=== PATIENT | male | born 1965 | race Caucasian/White ===

== ENCOUNTER 2017-10-14 19:20 | Inpatient (IN) | payer OTHER ==
[~2017-10-14] VITALS: Ht 182.9 cm; Wt 106.8 kg
--- NOTE | 2017-10-14 20:05 | EKG ---
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
[2017-10-14 20:07] LABS: BASO # 0.1 x10^3/uL (0.0-0.2); BASO % 1 % (0-3); EOS # 0.2 x10^3/uL (0.0-0.7); EOS % 2 % (0-3); HEMOGLOBIN 13.7 g/dL (13.0-17.5); LYMPH # 2.3 x10^3/uL (1.0-4.8); LYMPH % 21 % (24-48); MEAN CORPUSCULAR HEMOGLOBIN 30 pg (25-35); MEAN CORPUSCULAR HGB CONC 35 g/dL (31-37); MEAN CORPUSCULAR VOLUME 84 fL (79-100); MONO # 0.8 x10^3/uL (0.0-1.1); MONO % 8 % (0-9); NEUT # 7.3 x10^3uL (1.8-7.7); NEUT % 69 % (31-73); PLATELET COUNT 245 x10^3/uL (140-400); RED BLOOD COUNT 4.67 x10^6/uL (4.30-5.70); RED CELL DISTRIBUTION WIDTH 14.6 % (11.5-14.5); WHITE BLOOD COUNT 10.7 x10^3/uL (4.0-11.0)
[2017-10-14 20:21] LABS: ALBUMIN 4.5 g/dL (3.4-5.0); ALBUMIN/GLOBULIN RATIO 1.4 (1.0-1.7); CALCIUM 9.4 mg/dL (8.5-10.1); CREATININE 1.5 mg/dL (0.7-1.3); GFR 49.1; POTASSIUM 3.9 mmol/L (3.5-5.1); TOTAL BILIRUBIN 0.4 mg/dL (0.2-1.0); TOTAL PROTEIN 7.8 g/dL (6.4-8.2)
[2017-10-14] MEDS ORDERED: NITROGLYCERIN OINT 1 GM PACKET. TP ONE (20:30)
--- NOTE | 2017-10-14 20:39 | RAD ---
EXAM: Chest, single view. HISTORY: Chest pain. COMPARISON: None. FINDINGS: A frontal view of the chest is obtained. There is no infiltrate, effusion or pneumothorax. The heart is normal in size. There may be a chronic inferior right rib fracture. IMPRESSION: No acute pulmonary finding. Electronically signed by: Aundrea Melchor MD (10/14/2017 8:36 PM) [facility]
[2017-10-14] MEDS ORDERED: MORPHINE SULFATE 4 MG/ML DISP.SYRIN. IV PRN (21:00)
[2017-10-14] MEDS ORDERED: NITROGLYCERIN SUBLINGUAL 0.4 MG BOTTLE OF 25. SL PRN (21:00)
--- NOTE | 2017-10-14 21:05 | PHYS DOC ---
Past History Past Medical History: Alcoholism, Diabetes, High Cholesterol, Hypertension Past Surgical History: Cholecystectomy, Other Alcohol Use: Sober Drug Use: None Adult General Chief Complaint Chief Complaint: CHEST PAIN HPI HPI 51-year-old male with no history of known coronary artery disease, risk factors hypertension high cholesterol and type 2 diabetes as well as a family history of coronary artery disease. Patient describes his mother in her 60s of a heart attack. Patient came to the emergency department because he was experiencing a dull chest ache mid chest. No shortness of breath nausea vomiting or diaphoresis. Patient denies active cough or fever. He has no pleuritic pain. Pain is not reproducible with movement. He states he did have a cardiac workup previously with a stress test and he thinks a catheterization several years ago and the results were unremarkable and required no intervention. Patient was given 324 mG of aspirin by EMS Review of Systems Review of Systems Constitutional: Denies fever or chills [] Eyes: Denies change in visual acuity, redness, or eye pain [] HENT: Denies nasal congestion or sore throat [] Respiratory: Denies cough or shortness of breath [] Cardiovascular: No additional information not addressed in HPI [] GI: Denies abdominal pain, nausea, vomiting, bloody stools or diarrhea [] : Denies dysuria or hematuria [] Musculoskeletal: Denies back pain or joint pain [] Integument: Denies rash or skin lesions [] Neurologic: Denies headache, focal weakness or sensory changes [] Endocrine: Denies polyuria or polydipsia [] All other systems were reviewed and found to be within normal limits, except as documented in this note. Current Medications Current Medications Current Medications Medications (Trade) Dose Ordered Sig/Bessie Start Time Stop Time Status Last Admin Dose Admin Morphine Sulfate (Morphine 4mg Syringe) 2 mg PRN Q2HR PRN 10/14/17 21:00 Nitroglycerin (Nitro-Bid Oint) 1 inch 1X ONCE 10/14/17 20:30 10/14/17 20:31 DC 10/14/17 20:35 1 INCH Nitroglycerin (Nitrostat) 0.4 mg PRN Q5MIN PRN 10/14/17 21:00 10/15/17 20:59 UNV Sodium Chloride 1,000 ml @ 125 mls/hr Q8H 10/14/17 21:00 10/15/17 20:59 Allergies Allergies Allergies Coded Allergies Type Severity Reaction Last Updated Verified No Known Drug Allergies 10/14/17 No Physical Exam Physical Exam Constitutional: Well developed, well nourished, no acute distress, non-toxic appearance. [] HENT: Normocephalic, atraumatic, bilateral external ears normal, oropharynx moist, no oral exudates, nose normal. [] Eyes: PERRLA, EOMI, conjunctiva normal, no discharge. [] Neck: Normal range of motion, no tenderness, supple, no stridor. [] Cardiovascular:Heart rate regular rhythm, no murmur [] Lungs & Thorax: Bilateral breath sounds clear to auscultation [] Abdomen: Bowel sounds normal, soft, no tenderness, no masses, no pulsatile masses. [] Skin: Warm, dry, no erythema, no rash. [] Back: No tenderness, no CVA tenderness. [] Extremities: No tenderness, no cyanosis, no clubbing, ROM intact, no edema. [] Neurologic: Alert and oriented X 3, normal motor function, normal sensory function, no focal deficits noted. [] Psychologic: Affect normal, judgement normal, mood normal. [] Current Patient Data Vital Signs Vital Signs Date Time Temp Pulse Resp B/P (MAP) Pulse Ox O2 Delivery O2 Flow Rate FiO2 10/14/17 20:35 61 165/92 10/14/17 19:20 98.3 18 98 Room Air Lab Results Laboratory Tests Test 10/14/17 19:30 White Blood Count 10.7 x10^3/uL (4.0-11.0) Red Blood Count 4.67 x10^6/uL (4.30-5.70) Hemoglobin 13.7 g/dL (13.0-17.5) Hematocrit 39.0 % (39.0-53.0) Mean Corpuscular Volume 84 fL (79-100) Mean Corpuscular Hemoglobin 30 pg (25-35) Mean Corpuscular Hemoglobin Concent 35 g/dL (31-37) Red Cell Distribution Width 14.6 % (11.5-14.5) H Platelet Count 245 x10^3/uL (140-400) Neutrophils (%) (Auto) 69 % (31-73) Lymphocytes (%) (Auto) 21 % (24-48) L Monocytes (%) (Auto) 8 % (0-9) Eosinophils (%) (Auto) 2 % (0-3) Basophils (%) (Auto) 1 % (0-3) Neutrophils # (Auto) 7.3 x10^3uL (1.8-7.7) Lymphocytes # (Auto) 2.3 x10^3/uL (1.0-4.8) Monocytes # (Auto) 0.8 x10^3/uL (0.0-1.1) Eosinophils # (Auto) 0.2 x10^3/uL (0.0-0.7) Basophils # (Auto) 0.1 x10^3/uL (0.0-0.2) Sodium Level 131 mmol/L (136-145) L Potassium Level 3.9 mmol/L (3.5-5.1) Chloride Level 96 mmol/L (98-107) L Carbon Dioxide Level 23 mmol/L (21-32) Anion Gap 12 (6-14) Blood Urea Nitrogen 17 mg/dL (8-26) Creatinine 1.5 mg/dL (0.7-1.3) H Estimated GFR (Cockcroft-Gault) 49.1 BUN/Creatinine Ratio 11 (6-20) Glucose Level 139 mg/dL (70-99) H Calcium Level 9.4 mg/dL (8.5-10.1) Total Bilirubin 0.4 mg/dL (0.2-1.0) Aspartate Amino Transferase (AST) 21 U/L (15-37) Alanine Aminotransferase (ALT) 34 U/L (16-63) Alkaline Phosphatase 73 U/L (46-116) Troponin I Quantitative < 0.017 ng/mL (0-0.055) Total Protein 7.8 g/dL (6.4-8.2) Albumin 4.5 g/dL (3.4-5.0) Albumin/Globulin Ratio 1.4 (1.0-1.7) EKG EKG EKG with normal sinus rhythm at 61 bpm, left axis deviation, no STEMI interpreted by me Radiology/Procedures Radiology/Procedures Chest x-ray chronic changes no acute disease interpreted by me[] Course & Med Decision Making Course & Med Decision Making Pertinent Labs and Imaging studies reviewed. (See chart for details) Signs and symptoms consistent with chest pain a possible cardiac etiology in this 51-year-old male with multiple cardiac risk factors and a family history of coronary artery disease. EKG unremarkable. Troponin negative. Chest x-ray benign. He's clinically stable and pain-free on M.D. exam. Nitroglycerin paste applied. Case discussed with Dr. Hoffman hospitalist on-call is aware the history and findings and accept the patient for inpatient admission to his service for full cardiac workup. Dragon Disclaimer Dragon Disclaimer This electronic medical record was generated, in whole or in part, using a voice recognition dictation system. Departure Departure: Impression: Primary Impression: Chest pain Disposition: ADMITTED INPATIENT Admitting Physician: Andrew Hoffman Condition: GOOD LAURIE GROSS MD October 14, 2017 21:05
[2017-10-14 23:59] VITALS: BP 129/81
[2017-10-15] MEDS: IV NORMAL SALINE 1,000ML 1,000 ML IV SCH ×3 (00:10→08:52)
[2017-10-15] MEDS ORDERED: LISI-338 PO (03:05)
[2017-10-15] MEDS ORDERED: CYAN100031 PO (03:05)
[2017-10-15] MEDS ORDERED: ASPI-612 PO (03:05)
[2017-10-15] MEDS ORDERED: MIRT15TA3 PO (03:05)
[2017-10-15] MEDS ORDERED: INSU100I13 SQ (03:05)
[2017-10-15] MEDS ORDERED: OLAN10TA9 PO (03:05)
[2017-10-15] MEDS ORDERED: HYDR25TA PO (03:05)
[2017-10-15] MEDS ORDERED: CRESTOR20 MG PO (03:05)
[2017-10-15] MEDS ORDERED: LURA40TA PO (03:05)
[2017-10-15] MEDS ORDERED: NALT50TA PO (03:05)
[2017-10-15] MEDS ORDERED: TOPI50TA8 PO (03:05)
[2017-10-15] MEDS ORDERED: OXCA300T PO (03:05)
[2017-10-15] MEDS ORDERED: LORA10TA3 PO (03:05)
[2017-10-15] MEDS ORDERED: MAGN400T3 PO (03:05)
[2017-10-15] MEDS ORDERED: PROP20TA PO (03:05)
[2017-10-15] MEDS ORDERED: PANT40TA5 PO (03:05)
[2017-10-15] MEDS ORDERED: CALC1TAB PO (03:05)
[2017-10-15] MEDS ORDERED: AMLO10TA2 PO (03:05)
[2017-10-15] MEDS ORDERED: LEVO150T5 PO (03:05)
[2017-10-15] MEDS ORDERED: METF10003 PO (03:05)
[2017-10-15] MEDS ORDERED: NICO1PAT21 TD (03:05)
[2017-10-15] MEDS ORDERED: FENO145T30 PO (03:05)
[2017-10-15] MEDS ORDERED: hydrOXYzine HCL 25 MG TABLET PO PRN (06:15)
[2017-10-15 06:30] VITALS: BP 112/72
[2017-10-15 06:41] LABS: BASO # 0.1 x10^3/uL (0.0-0.2); BASO % 1 % (0-3); EOS # 0.2 x10^3/uL (0.0-0.7); EOS % 2 % (0-3); HEMATOCRIT 36.2 % (39.0-53.0); HEMOGLOBIN 12.7 g/dL (13.0-17.5); LYMPH # 1.4 x10^3/uL (1.0-4.8); LYMPH % 20 % (24-48); MEAN CORPUSCULAR HEMOGLOBIN 29 pg (25-35); MEAN CORPUSCULAR HGB CONC 35 g/dL (31-37); MEAN CORPUSCULAR VOLUME 84 fL (79-100); MONO # 0.7 x10^3/uL (0.0-1.1); MONO % 9 % (0-9); NEUT % 68 % (31-73); PLATELET COUNT 200 x10^3/uL (140-400); RED BLOOD COUNT 4.32 x10^6/uL (4.30-5.70); RED CELL DISTRIBUTION WIDTH 15.1 % (11.5-14.5); WHITE BLOOD COUNT 7.3 x10^3/uL (4.0-11.0)
[2017-10-15 07:04] LABS: CALCIUM 8.7 mg/dL (8.5-10.1); CREATININE 1.4 mg/dL (0.7-1.3); GFR 53.2
[2017-10-15] MEDS: ASPIRIN ENTERIC COATED 81 MG TABLET.DR. PO SCH (08:54)
[2017-10-15] MEDS: LEVOTHYROXINE 150 MCG TABLET PO SCH (08:54)
[2017-10-15] MEDS: PANTOPRAZOLE 40 MG TABLET. PO SCH (08:54)
[2017-10-15] MEDS: metFORMIN 500 MG TABLET PO SCH ×2 (08:54→17:51)
[2017-10-15] MEDS: CALCIUM CARB/VIT D3 500/200 TABLET PO SCH ×2 (08:55→17:51)
[2017-10-15] MEDS: PROPRANOLOL 20 MG TABLET. PO SCH ×3 (08:56→20:41)
[2017-10-15] MEDS: NALTREXONE HCL 50 MG TABLET PO SCH (08:56)
[2017-10-15] MEDS: MAGNESIUM OXIDE 400 MG TABLET PO SCH (08:57)
[2017-10-15] MEDS: LURASIDONE 40 MG TABLET. PO SCH (08:57)
[2017-10-15] MEDS: amLODIPine BESYLATE 10 MG TABLET PO SCH (08:58)
[2017-10-15] MEDS: FENOFIBRATE NANOCRYSTALLIZED 145 MG TABLET PO SCH (08:58)
[2017-10-15] MEDS: LISINOPRIL 5 MG TABLET. PO SCH (08:58)
[2017-10-15] MEDS: TOPIRAMATE 25 MG TABLET. PO SCH ×2 (08:58→20:41)
[2017-10-15] MEDS: CYANOCOBALAMIN (VITAMIN B-12) 1,000 MCG TABLET. PO SCH (08:59)
[2017-10-15] MEDS: NICOTINE 21MG PATCH. TD SCH (09:00)
--- NOTE | 2017-10-15 09:18 | PDOC2 ---
CONSULT Date of Admission DATE: 10/15/17 TIME: 09:05 Reason for Consult: chest pain Problem List Problems Medical Problems: (1) Chest pain Status: Acute History of Present Illness Mr Haji is a 51 year old male with history of hypertension, hyperlipidemia, and diabetes. He presents with complaints of chest pain which started while sitting watching TV. He describes a sharp stabbing midsternal pain that radiated around his arm pit to his back. He reports some associated dyspnea and weakness. He reports the pain lasted about 20 minutes and rated it an 8-9 on 1-10 scale. He denies any increase with deep inspiration, position, movement or exertion. He states on arrival to ED he again began to have pain which was unrelieved with nitrates and resolved with morphine. He has been pain free since that time. He denies any dyspnea on exertion and states his functional capacity at 2 miles walking. He denies congestive symptoms. He denies palpitations, lightheadedness or syncope. He denies any recent progressive fatigue. Cardiovascular: HTN, hyperipidemia Pulmonary: No pertinent hx GI: GERD Heme/Onc: No pertinent hx Hepatobiliary: No pertinent hx Psych: Bipolar, Depression Musculoskeletal: No pertinent hx Rheumatologic: No pertinent hx Infectious disease: No pertinent hx ENT: No pertinent hx Renal/: Chronic renal insuff Endocrine: Diabetes, Hyperthyroidism Dermatology: No pertinent hx Past Surgical History: Cholecystectomy, Other (umbilical hernia repair, inguinal hernia repair) Family History Mother age 60 with [place] Social History Chews tobacco, alcoholism with last drink September 04, remote history of methamphetamine and cocaine use. currently lives in domiciliary at the [facility]. Current Medications Current Medications Nitroglycerin (Nitro-Bid Oint) 1 inch 1X ONCE TP Last administered on at 20:35; Start 10/14/17 at 20:30; Stop 10/14/17 at 20:31; Status DC Morphine Sulfate (Morphine 4mg Syringe) 2 mg PRN Q2HR PRN IV PAIN Last administered on 10/15/17at 00:11; Start 10/14/17 at 21:00 Sodium Chloride 1,000 ml @ 125 mls/hr Q8H IV Last administered on 10/15/17at 08 :52; Start 10/14/17 at 21:00; Stop 10/15/17 at 20:59 Nitroglycerin (Nitrostat) 0.4 mg PRN Q5MIN PRN SL CHEST PAIN; Start 10/14/17 at 21:00; Stop 10/15/17 at 20:59 Hydroxyzine HCl (Atarax) 25 mg PRN TID PRN PO ITCHING; Start 10/15/17 at 06:15 Insulin Glargine (Lantus) 30 units QHS SQ ; Start 10/15/17 at 21:00 Lisinopril (Prinivil) 5 mg DAILY PO Last administered on 10/15/17at 08:58; Start 10/15/17 at 09:00 Oxcarbazepine (Trileptal) 450 mg BID PO Last administered on 10/15/17at 08:59; Start 10/15/17 at 09:00 Amlodipine Besylate (Norvasc) 10 mg DAILY PO Last administered on 10/15/17at 08: 58; Start 10/15/17 at 09:00 Aspirin (Aspirin Enteric Coated) 81 mg DAILYWBKFT PO Last administered on at 08:54; Start 10/15/17 at 08:00 Calcium/Vitamin D (Oscal D 500mg/ 200uts) 1 tab BIDWMEALS PO Last administered on 10/15/17at 08:55; Start 10/15/17 at 08:00 Cyanocobalamin (Vitamin B-12) 2,000 mcg DAILY PO Last administered on at 08:59; Start 10/15/17 at 09:00 Fenofibrate (Tricor) 145 mg DAILY PO Last administered on 10/15/17at 08:58; Start 10/15/17 at 09:00 Levothyroxine Sodium (Synthroid) 150 mcg DAILY07 PO Last administered on at 08:54; Start 10/15/17 at 07:00 Magnesium Oxide (Magnesium Oxide) 400 mg DAILY PO Last administered on at 08:57; Start 10/15/17 at 09:00 Metformin HCl (Glucophage) 1,000 mg BIDWMEALS PO Last administered on at 08:54; Start 10/15/17 at 08:00 Mirtazapine (Remeron) 15 mg QHS PO ; Start 10/15/17 at 21:00 Naltrexone HCl (Depade) 50 mg DAILY PO Last administered on 10/15/17at 08:56; Start 10/15/17 at 09:00 Nicotine (Nicoderm Cq 21mg) 1 patch DAILY TD Last administered on 10/15/17at 09: 00; Start 10/15/17 at 09:00 Olanzapine (ZyPREXA) 10 mg QHS PO ; Start 10/15/17 at 21:00 Pantoprazole Sodium (Protonix) 40 mg DAILYAC PO Last administered on 10/15/17at 08:54; Start 10/15/17 at 07:30 Propranolol HCl (Inderal) 20 mg TID PO Last administered on 10/15/17at 08:56; Start 10/15/17 at 09:00 Atorvastatin Calcium (Lipitor) 40 mg QHS PO ; Start 10/15/17 at 21:00 Topiramate (Topamax) 50 mg BID PO Last administered on 10/15/17at 08:58; Start 10/15/17 at 09:00 Active Scripts Active Reported Amlodipine Besylate 10 Mg Tablet 10 Mg PO DAILY Aspirin Ec (Aspirin) 81 Mg Tablet.dr 81 Mg PO DAILY Caltrate 600 + D Tablet (Calcium Carbonate/Vitamin D3) 1 Each Tablet 1 Each PO BIDACBL B-12 (Cyanocobalamin (Vitamin B-12)) 1,000 Mcg Tablet.er 2,000 Mcg PO DAILY Fenofibrate (Fenofibrate Nanocrystallized) 145 Mg Tablet 145 Mg PO DAILY Levothyroxine Sodium 150 Mcg Tablet 150 Mcg PO DAILYAC Lisinopril 5 Mg Tablet 5 Mg PO DAILY Latuda (Lurasidone Hcl) 40 Mg Tablet 120 Mg PO DAILY Magnesium Oxide 400 Mg Tablet 400 Mg PO DAILY Metformin Hcl 1,000 Mg Tablet 1,000 Mg PO BIDWMEALS Mirtazapine 15 Mg Tablet 15 Mg PO HS Naltrexone Hcl 50 Mg Tablet 50 Mg PO DAILY Olanzapine 10 Mg Tablet 10 Mg PO HS Oxcarbazepine 300 Mg Tablet 450 Mg PO BID Pantoprazole Sodium 40 Mg Tablet.dr 40 Mg PO DAILYAC Propranolol Hcl 20 Mg Tablet 20 Mg PO TID Crestor (Rosuvastatin Calcium) 20 Mg Tablet 20 Mg PO HS Topiramate 50 Mg Tablet 50 Mg PO BID Hydroxyzine Hcl 25 Mg Tablet 25 Mg PO PRN TID PRN Loratadine 10 Mg Tablet 10 Mg PO PRN DAILY PRN NICODERM CQ 21mg (Nicotine) 1 Each Patch.td24 1 Patch TD DAILY Lantus Solostar (Insulin Glargine,Hum.rec.anlog) 100 Unit/1 Ml Insuln.pen 30 Unit SQ QHS Allergies: Coded Allergies: No Known Drug Allergies (Unverified , 10/14/17) Review of System as per HPI or negative General: Alert, Oriented X3, Cooperative, No acute distress HEENT: Atraumatic, EOMI, Mucous membr. moist/pink, Other (No carotid bruits, no JVD/HJR) Lungs: Clear to auscultation, Normal air movement Heart: Regular rate, Normal S1, Normal S2, Other (no gallops, clicks or rubs) Abdomen: Normal bowel sounds, Soft, No tenderness Extremities: No cyanosis, No edema, Normal pulses Neuro: Normal speech, Strength at 5/5 X4 ext Psych/Mental Status: Mental status NL, Mood NL VITALS Vital Signs Date Time Temp Pulse Resp B/P (MAP) Pulse Ox O2 Delivery O2 Flow Rate FiO2 10/15/17 08:58 61 112/72 10/15/17 06:30 98.2 20 96 Room Air Labs Laboratory Tests Test 10/14/17 19:30 10/14/17 23:55 10/15/17 06:20 White Blood Count 10.7 x10^3/uL (4.0-11.0) 7.3 x10^3/uL (4.0-11.0) Red Blood Count 4.67 x10^6/uL (4.30-5.70) 4.32 x10^6/uL (4.30-5.70) Hemoglobin 13.7 g/dL (13.0-17.5) 12.7 g/dL (13.0-17.5) Hematocrit 39.0 % (39.0-53.0) 36.2 % (39.0-53.0) Mean Corpuscular Volume 84 fL (79-100) 84 fL (79-100) Mean Corpuscular Hemoglobin 30 pg (25-35) 29 pg (25-35) Mean Corpuscular Hemoglobin Concent 35 g/dL (31-37) 35 g/dL (31-37) Red Cell Distribution Width 14.6 % (11.5-14.5) 15.1 % (11.5-14.5) Platelet Count 245 x10^3/uL (140-400) 200 x10^3/uL (140-400) Neutrophils (%) (Auto) 69 % (31-73) 68 % (31-73) Lymphocytes (%) (Auto) 21 % (24-48) 20 % (24-48) Monocytes (%) (Auto) 8 % (0-9) 9 % (0-9) Eosinophils (%) (Auto) 2 % (0-3) 2 % (0-3) Basophils (%) (Auto) 1 % (0-3) 1 % (0-3) Neutrophils # (Auto) 7.3 x10^3uL (1.8-7.7) 5.0 x10^3uL (1.8-7.7) Lymphocytes # (Auto) 2.3 x10^3/uL (1.0-4.8) 1.4 x10^3/uL (1.0-4.8) Monocytes # (Auto) 0.8 x10^3/uL (0.0-1.1) 0.7 x10^3/uL (0.0-1.1) Eosinophils # (Auto) 0.2 x10^3/uL (0.0-0.7) 0.2 x10^3/uL (0.0-0.7) Basophils # (Auto) 0.1 x10^3/uL (0.0-0.2) 0.1 x10^3/uL (0.0-0.2) Sodium Level 131 mmol/L (136-145) 137 mmol/L (136-145) Potassium Level 3.9 mmol/L (3.5-5.1) 4.0 mmol/L (3.5-5.1) Chloride Level 96 mmol/L (98-107) 102 mmol/L (98-107) Carbon Dioxide Level 23 mmol/L (21-32) 22 mmol/L (21-32) Anion Gap 12 (6-14) 13 (6-14) Blood Urea Nitrogen 17 mg/dL (8-26) 18 mg/dL (8-26) Creatinine 1.5 mg/dL (0.7-1.3) 1.4 mg/dL (0.7-1.3) Estimated GFR (Cockcroft-Gault) 49.1 53.2 BUN/Creatinine Ratio 11 (6-20) Glucose Level 139 mg/dL (70-99) 126 mg/dL (70-99) Calcium Level 9.4 mg/dL (8.5-10.1) 8.7 mg/dL (8.5-10.1) Total Bilirubin 0.4 mg/dL (0.2-1.0) Aspartate Amino Transf (AST/SGOT) 21 U/L (15-37) Alanine Aminotransferase (ALT/SGPT) 34 U/L (16-63) Alkaline Phosphatase 73 U/L (46-116) Troponin I Quantitative < 0.017 ng/mL (0-0.055) < 0.017 ng/mL (0-0.055) < 0.017 ng/mL (0-0.055) Total Protein 7.8 g/dL (6.4-8.2) Albumin 4.5 g/dL (3.4-5.0) Albumin/Globulin Ratio 1.4 (1.0-1.7) Images EKG - sinus rhythm, left axis, early R wave transition. No acute ischemic changes. Assessment/Plan 1. Chest pain, atypical - [place] ruled out. No acute EKG changes. Chest pain free at this time. Due to his multiple risk factors I would recommend echocardiogram for LV function and wall motion and MPI to rule out IHD. MPI could be completed as outpatient if no significant abnormalities on Echo. Request records from [facility] of stress test and cardiac cath done 3-4 years ago. Continue aspirin, statin and risk factor reduction. If abn echo would recommend change propranolol to Toprol XL. 2. hypertension - well controlled on current Rx 3. hyperlipidemia - continue statin and check lipids. 4. diabetes mellitus - per PCP 5. family history of premature coronary disease ELISE MASCORRO MANAGER INFORMATION October 15, 2017 09:18
--- NOTE | 2017-10-15 11:56 | CARD ---
MR#: [id number] Date of Study: 10/15/2017 Ordering Physician: ELISE MASCORRO, Referring Physician: NEIDA THOMAS Tech: LANG Gil APPROVED REPORT EXAM: Two-dimensional and M-mode echocardiogram with Doppler and color Doppler. Other Information Quality : AverageHR: 72bpm INDICATION Chest Pain 2D DIMENSIONS Left Atrium(2D)2.8 (1.6-4.0cm)IVSd1.2 (0.7-1.1cm) Aortic Root(2D)3.8 (2.0-3.7cm)LVDd4.4 (3.9-5.9cm) LVOT Diameter2.3 (1.8-2.4cm)PWd1.4 (0.7-1.1cm) LVDs3.1 (2.5-4.0cm)FS (%) 28.7 % SV48.0 mlLVEF(%)55.5 (>50%) Aortic Valve AoV Peak Kelvin.145.6cm/sAoV VTI29.7cm AO Peak GR.8.5mmHgLVOT Peak Kelvin.121.0cm/s LVOT VTI 26.35cmAO Mean GR.5mmHg ELLIS (VMAX)3.66nj9JVK (VTI)3.80cm2 Mitral Valve MV E Bdldfmjy38.6cm/sMV DECEL [id number] MV A Nmaootso444.9cm/sE/A Ratio0.9 Pulmonary Valve PV Peak Xxtvrwyt598.6cm/sPV Peak Grad.5mmHg Tricuspid Valve TR P. Oescjjuu510ej/sTR Peak Gr.8mmHg Pulmonary Vein S1 Xvvnaius15.9cm/sD2 Mxajtern70.1cm/s LEFT VENTRICLE The left ventricle is normal size. There is borderline to mild concentric left ventricular hypertroph y. The left ventricular systolic function is normal. The ejection fraction is 55-60%. There is normal LV segmental wall motion. The left ventricular diastolic function and filling is normal for age. RIGHT VENTRICLE The right ventricle is normal size. The right ventricular systolic function is normal. ATRIA The left atrium size is normal. The right atrium size is normal. Interatrial septum not well visualiz ed. AORTIC VALVE The aortic valve is thickened but opens well. Doppler and Color Flow revealed no significant aortic r egurgitation. There is no significant aortic valvular stenosis. There is no aortic valvular vegetatio n. MITRAL VALVE The mitral valve is thickened but opens well. There is no evidence of mitral valve prolapse. There is no mitral valve stenosis. Doppler and Color-flow revealed trace mitral regurgitation. TRICUSPID VALVE The tricuspid valve leaflets are thickened , but open well. Doppler and Color Flow revealed no tricus pid valve regurgitation noted. There is no tricuspid valve prolapse or vegetation. There is no tricus pid valve stenosis. PULMONIC VALVE The pulmonic valve is not well visualized. Doppler and Color Flow revealed no pulmonic valvular regur gitation. There is no pulmonic valvular stenosis. GREAT VESSELS The aortic root is normal size. The aortic root displays mild sclerocalcific changes of the aortic ro ot. The IVC was not visualized. PERICARDIAL EFFUSION There is no pleural effusion. There is no evidence of significant pericardial effusion. Critical Notification Critical Value: No <Conclusion> The left ventricle is normal size. The left ventricular systolic function is normal. The ejection fraction is 55-60%. There is borderline to mild concentric left ventricular hypertrophy. There is no significant aortic valvular stenosis. Doppler and Color Flow revealed no significant aortic regurgitation. Doppler and Color-flow revealed trace mitral regurgitation. Doppler and Color Flow revealed no tricuspid valve regurgitation noted. Signed by : Mitch Roberts MD Electronically Approved : 10/15/2017 11:55:19
[2017-10-15 12:20] VITALS: BP 157/67
--- NOTE | 2017-10-15 18:07 | HP ---
ADMIT DATE: 10/14/2017 HISTORY OF PRESENT ILLNESS: The patient is a 51-year-old male patient who came to the Emergency Room with a complaint of chest pain that is dull and aching, retrosternal, not associated with any shortness of breath, nausea or diaphoresis. Denied any cough or fever. He has no pleuritic pain. Pain is not reproducible with movement and he stated he did have a cardiac workup previously with a stress test and he thinks a catheterization several years ago. At that time, the results were unremarkable and required no intervention. The patient was given 325 mg of aspirin by the emergency medical service personnel. He was evaluated in the Emergency Room. His EKG showed that he was in sinus rhythm with a heart rate of 61 beats per minute, left axis deviation, no ST segment elevation or depression. Chest x-ray was unremarkable. His first set of cardiac enzyme was 0.017 and patient was admitted to do 2 more sets of cardiac enzyme. Check his fasting lipid profile and consult the superintendent stevedoring. PAST MEDICAL HISTORY: Significant for type 2 diabetes, hypertension, hyperlipidemia, chronic kidney disease, and hypothyroidism. He apparently underwent thyroid ablation with radioactive iodine. PAST SURGICAL HISTORY: Significant for umbilical hernia repair, right inguinal hernia repair, cholecystectomy, wisdom tooth extraction. He also underwent dysphagia, gastric anoscopy and colonoscopy. ALLERGIES: He has no known drug allergies. MEDICATIONS: He is currently on following medications: He is on loratadine 10 mg once a day, Nicoderm patch 21 mg transdermal patch daily, fenofibrate 145 mg once a day, Crestor 20 mg at bedtime, propranolol 20 mg 3 times a day, amlodipine besylate 10 mg once a day, lisinopril 5 mg once a day, aspirin 81 mg once a day, naltrexone 50 mg daily, oxcarbazepine 450 mg twice a day, topiramate 50 mg twice a day. He is also on Latuda 120 mg once a day, olanzapine 10 mg at bedtime, hydroxyzine 25 mg 3 times a day, calcium carbonate with vitamin D3 one tablet twice a day, magnesium oxide 400 mg daily, Protonix 40 mg daily, metformin 1000 mg twice a day with meals. He is on Lantus SoloSTAR 30 units at bedtime. He is on levothyroxine 150 mcg once a day, cyanocobalamin 1000 mcg 2 tablets daily. He is on Nicoderm CQ 21 mg patch daily. He is on fenofibrate. FAMILY HISTORY: He has one brother and one sister, both older and healthy. His father at the age of 72 because of cerebrovascular accident. Mother at age of 61 because of myocardial infarction. SOCIAL HISTORY: He is . Normally lives with his friend in an apartment in [facility]. He is now in a detoxification program. For alcohol, his last drink was on 09/04/2017. He has 2 sons. He continues to chew tobacco. He has been a heavy drinker. He used to drink 30-pack per day before. Recently, he dropped down to 12 packs twice a week and currently, he is in a detoxification program. 10 years ago, he abused cocaine, marijuana and methamphetamine. 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 REVIEW OF SYSTEMS: The patient denied any blurring of vision, cataract, glaucoma or macular degeneration. Denied any earache, tinnitus, but he has bilateral hearing aids. He has exposed to jet engines and racing cars. Denied any nosebleeds, stuffy nose, or postnasal drip. Denied any sore throat, sore tongue, toothache, hoarseness of voice or difficulty swallowing. Denied any nausea, vomiting, diarrhea or constipation. Denied any hematemesis, melena or hematochezia. Denied any dysuria, frequency or hematuria. Denied any nocturia. He did complain of chest pain, but denied any shortness of breath, orthopnea, or paroxysmal nocturnal dyspnea. Denied any cough, phlegm or hemoptysis. Denied any chills, rigors, or fever. Denied any dizziness, lightheadedness, or vertigo. PHYSICAL EXAMINATION: GENERAL: On arrival to the Emergency Room, he looked well and was clearly in no apparent respiratory distress. There was no pallor, jaundice, cyanosis, or thyromegaly. No jugular venous distension. No limb edema. VITAL SIGNS: His heart rate was 70, blood pressure was 128/72, temperature was 98, respiratory rate was 18 and oxygen saturation was 98% on room air. HEAD, EYES, EARS, NOSE AND THROAT: Showed normocephalic, atraumatic. NECK: Supple. HEART: Showed normal first and second heart sounds. No gallop, rub or murmur. CHEST: Clear to auscultation. No crepitation or rhonchi. ABDOMEN: Distended, soft, nontender. No guarding or rigidity. No organomegaly. Hernial orifice intact and bowel sounds normal. NEUROLOGIC: He was awake, alert, responding appropriately, appears intact. EXTREMITIES: He moves extremities without difficulty, ambulates without assistance or assistive devices. LABORATORY DATA: On admission showed that his serum sodium was 131, potassium 3.9, chloride 96, bicarbonate 23, anion gap of 12, BUN 17, creatinine 1.5, estimated GFR was 49 mL per minute. His glucose 139, calcium was 9.4. Total bilirubin, AST, ALT, alkaline phosphatase were normal. His total protein was 7.8, albumin was 4.5. His first set of cardiac enzymes showed troponin to be less than 0.017. White cell count was 10,700, hemoglobin 14, hematocrit 39, MCV 84 and platelet count 245,000 with normal manual differential. IMPRESSION: In summary, this is a 51-year-old male patient [place] who is currently in an alcohol detoxification program. His last alcohol drink was on 09/04/2017, who came to the Emergency Room with a complaint of chest pain, retrosternal. Denied any nausea or vomiting. Denied any shortness of breath or diaphoresis. His EKG showed no evidence of ST segment elevation or depression. His first set of cardiac enzymes showed troponin to be less than 0.017. He has multiple risk factors for coronary artery disease including diabetes, hypertension, hyperlipidemia and his mother of heart attack at age of 61. He continues to chew tobacco and therefore, the patient was admitted to do 2 more sets of cardiac enzymes, check his fasting lipid profile and consult the Cardiology team. NEIDA THOMAS MD DR: DREA/maite JOB#: [id number] / [id number]
[2017-10-15 18:08] VITALS: BP 142/83
[2017-10-15 19:38] VITALS: BP 137/79
--- NOTE | 2017-10-15 19:41 | PN ---
DATE: 10/15/2017 The patient is sitting on the edge of the bed comfortably, in no apparent respiratory distress. On questioning him, he denied any complaint in particular, has no further episodes of chest pain. Denied any shortness of breath, orthopnea or paroxysmal nocturnal dyspnea. He has had 2 more sets of cardiac enzymes that were negative. Troponin was less than 0.017. He apparently has had an echocardiogram, which showed that his left ventricle is normal in size and has normal systolic function with an ejection fraction of 55-60%. Does have borderline to mild concentric left ventricular hypertrophy. No significant aortic valvular stenosis. No significant aortic regurgitation, revealed trace mitral regurgitation, no tricuspid valve regurgitation noted. His fasting lipid profile showed serum triglycerides to be 238. Total cholesterol was 160, LDL was 78, VLDL was 47, and HDL cholesterol was 35 and the ratio was 4. The patient was seen by the Cardiology team and basically, they recommended to evaluate left ventricular systolic function by an echocardiogram that was done and the nuclear stress test could be completed as an outpatient if no significant abnormalities on echocardiogram. He apparently was evaluated in [place], [place] with a stress test and cardiac catheterization done about 3-4 years ago. Medical records were requested and his propranolol was switched to Toprol-XL. Meanwhile, we will continue with all his medication and discharge him back to the detoxification program tomorrow. NEIDA THOMAS MD DR: DREA/maite JOB#: [id number] / [id number]
[2017-10-15] MEDS ORDERED: INSULIN GLARGINE 300 UNITS/3 ML INSULN.PEN. SQ SCH (21:00)
[2017-10-15] MEDS ORDERED: ATORVASTATIN CALCIUM 20 MG TABLET PO SCH (21:00)
[2017-10-15] MEDS ORDERED: MIRTAZAPINE 15 MG TABLET PO SCH (21:00)
[2017-10-15] MEDS ORDERED: OLANZapine 10 MG TABLET PO SCH (21:00)
[2017-10-15 23:08] VITALS: BP 129/69
[2017-10-16 05:00] VITALS: BP 103/69
[2017-10-16] MEDS: LEVOTHYROXINE 150 MCG TABLET PO SCH (05:58)
[2017-10-16] MEDS: TOPIRAMATE 25 MG TABLET. PO SCH (09:06)
[2017-10-16] MEDS: PROPRANOLOL 20 MG TABLET. PO SCH (09:06)
[2017-10-16] MEDS: FENOFIBRATE NANOCRYSTALLIZED 145 MG TABLET PO SCH (09:06)
[2017-10-16] MEDS: CYANOCOBALAMIN (VITAMIN B-12) 1,000 MCG TABLET. PO SCH (09:07)
[2017-10-16] MEDS: amLODIPine BESYLATE 10 MG TABLET PO SCH (09:07)
[2017-10-16] MEDS: MAGNESIUM OXIDE 400 MG TABLET PO SCH (09:07)
[2017-10-16] MEDS: CALCIUM CARB/VIT D3 500/200 TABLET PO SCH (09:07)
[2017-10-16] MEDS: metFORMIN 500 MG TABLET PO SCH (09:07)
[2017-10-16 09:08] VITALS: BP 103/69
[2017-10-16] MEDS: ASPIRIN ENTERIC COATED 81 MG TABLET.DR. PO SCH (09:08)
[2017-10-16] MEDS: LISINOPRIL 5 MG TABLET. PO SCH (09:08)
[2017-10-16] MEDS: PANTOPRAZOLE 40 MG TABLET. PO SCH (09:08)
[2017-10-16] MEDS: NALTREXONE HCL 50 MG TABLET PO SCH (09:08)
[2017-10-16] MEDS: LURASIDONE 40 MG TABLET. PO SCH (09:09)
[2017-10-16] MEDS: NICOTINE 21MG PATCH. TD SCH (09:10)
--- NOTE | 2017-10-16 21:30 | DS ---
DATE OF DISCHARGE: 10/16/2017 HISTORY OF PRESENT ILLNESS: The patient is a 51-year-old male patient who was admitted with a complaint of chest pain. He has had 3 sets of cardiac enzymes that were negative and ruled out myocardial infarction, has had an echocardiogram which showed that his left ventricular systolic function is normal with a normal ejection fraction of 55%-60%, no significant valvular disease. His fasting lipid profile showed triglycerides to be 238. Total cholesterol 160, LDL was 78, VLDL was 47, and HDL was 35 and the ratio was 4. The Cardiology team recommended doing a nuclear stress test as an outpatient and the patient remained stable, chest pain free and discharged him, he was sitting on the edge of the bed comfortably in no apparent respiratory distress. There was no pallor, jaundice, cyanosis, or thyromegaly. No jugular venous distension. No lower limb edema. PHYSICAL EXAMINATION: VITAL SIGNS: His heart rate was 57, blood pressure was 103/69, temperature was 97.5, respiratory rate was 16, and oxygen saturation was 97%. HEAD, EYES, EARS, NOSE AND THROAT: Showed normocephalic, atraumatic. NECK: Supple. HEART: Showed normal first and second heart sounds with no gallop, rub or murmur. CHEST: Clear to auscultation. No crepitation or rhonchi. ABDOMEN: Distended, soft, nontender. No guarding or rigidity. No organomegaly. Hernial orifice intact. Bowel sounds normal. NEUROLOGIC: He is awake, alert, responding appropriately. Cranial nerves intact. He moves extremities without difficulty, ambulates without assistance or assistive devices. His intake over the last 24 hours was 1500, output was 1775. LABORATORY DATA: Showed a serum sodium 137, potassium 4, chloride 102, bicarbonate 22, anion gap of 13, BUN is 18, creatinine 1.4, estimated GFR was 53 mL per minute, ____ 126, calcium was 8.7. His serum triglycerides were 238, total cholesterol 160, LDL was 78, VLDL was 47, HDL cholesterol was 35 and the ratio of 4. His white cell count was 7300, hemoglobin 13, hematocrit 36, MCV 84 and platelet count 200,000 with normal manual differential. DISCHARGE MEDICATIONS: He was discharged back to assisted living at the [facility] to continue on amlodipine 10 mg once a day, aspirin 2 mg once a day, calcium carbonate with vitamin D3 one tablet twice a day, cyanocobalamin 2000 mcg once a day, fenofibrate 145 mg once a day, hydroxyzine 25 mg 3 times a day. He is on Lantus insulin 30 units at bedtime, levothyroxine sodium 150 mcg once a day, lisinopril 5 mg once a day, loratadine 10 mg once a day, Latuda 120 mg daily, magnesium oxide 400 mg daily, metformin 1000 mg twice a day with meals, mirtazapine 15 mg at bedtime, naltrexone 50 mg daily for detoxification and Nicoderm patch 21 mg topically once a day, olanzapine 10 mg at bedtime, oxcarbazepine 450 mg twice a day, Protonix 40 mg daily, propranolol 20 mg 3 times a day, Crestor 20 mg at bedtime and topiramate 50 mg twice a day. FINAL DISCHARGE DIAGNOSES: Chest pain, myocardial infarction ruled out. Has multiple other medical problems including type 2 diabetes, hypertension, hyperlipidemia, chronic kidney disease, hypothyroidism, migraine headache, alcoholism. He is currently in a detoxification program. NEIDA THOMAS MD DR: DREA/maite JOB#: [id number] / [id number]
--- NOTE | 2017-10-18 17:21 | EKG ---
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
== END 2017-10-16 09:48 | disposition home or self-care (01) | DRG 206 ==
LOC: ER 19:20 → 1 SOUTH 22:23
PROVIDERS: ADMIT Internal Medicine; ATTEND Internal Medicine
DX: M94.0 Chondrocostal junction syndrome [Tietze] (principal); E11.22 Type 2 diabetes mellitus with diabetic chronic kidney disease; E03.9 Hypothyroidism, unspecified; E78.00 Pure hypercholesterolemia, unspecified; E78.5 Hyperlipidemia, unspecified; F10.20 Alcohol dependence, uncomplicated; F31.9 Bipolar disorder, unspecified; G43.909 Migraine, unspecified, not intractable, without status migrainosus; I12.9 Hypertensive chronic kidney disease with stage 1 through stage 4 chronic kidney disease, or unspecified chronic kidney disease; K21.9 Gastro-esophageal reflux disease without esophagitis; N18.9 Chronic kidney disease, unspecified; Z72.0 Tobacco use; Z79.82 Long term (current) use of aspirin; Z79.899 Other long term (current) drug therapy; Z82.49 Family history of ischemic heart disease and other diseases of the circulatory system; Z82.3 Family history of stroke; Z90.49 Acquired absence of other specified parts of digestive tract
CPT/HCPCS: 36415; 71045; 80048; 80053; 80061; 82947; 84484; 85025; 87641; 93005; 93306; J1815; J2270; 99285-25; J7030